=== PATIENT | male | born 1960 ===

== ENCOUNTER 2022-01-18 10:36 | Outpatient (REF) | payer BC, SELFPAY ==
--- NOTE | 2022-01-27 08:24 | MHC.AU.ANO ---
Adult Audiological Evaluation Date of Visit: 01/18/22 Reason for Appointment: Patient has started to notice changes in his hearing. He has difficulty hearing the television and difficulty hearing in background noise. Ear History: Ear Deformity: None Reported Recent Ear Pain: None Reported Family History of Hearing Loss?: No Recent Ear Infections: None Reported Ear Infections in Childhood: None Reported History of Ear Wax Buildup: Both Ears Previous Ear Surgery: None Reported Bothersome Tinnitus/Ringing/Noises in Ears: None Reported Ear used on the phone: Left Ear Blocked/Full Sensation in Ear(s): Both Ears History of occupational noise exposure?: Yes History: Yes: [employer] for 4 years Medical History: Medical History: Paroxysmal atrial fibrillation, psoriasis Otoscopy: Right Ear: Partially occluded with cerumen Left Ear: Partially occluded with cerumen Tympanometry: Tympanometry performed due to: To assess integrity of the middle ear system Right Ear: Hypercompliant Middle Ear System (Type Ad) Left Ear: Hypercompliant Middle Ear System (Type Ad) Hearing Evaluation: Transducer(s) Used: Circumaural Headphones Method: Conventional Audiometry Stimuli Used: Pure Tones Right Ear: Description of Hearing: Normal from 250-4000 Hz, borderline-normal at 1110-9078 Hz Left Ear: Description of Hearing: Normal from 250-2000 Hz, sloping to mild/moderate sensorineural hearing loss Speech Recognition Threshold (SRT): Method Used: Recorded Lists Stimuli Used: Spondee Words Right Ear: 5 dBHL Left Ear: 5 dBHL Word Discrimination: Method: Recorded Lists Word Lists Used: W-22 Right Ear: 100% at 55 dBHL Left Ear: 100% at 55 dBHL Interpretation of Results: At the start of today's appointment, patient's ear canals were mostly occluded with cerumen. Cerumen removal was performed using a lighted disposable curette. Sufficient cerumen was removed so that the tympanic membranes are now visible; however, there is deeper, hardened cerumen that remains that could not be removed today. It is unlikely that the remaining cerumen impacted test results. Patient presents with a high frequency asymmetry, worse in the left ear. Recommendations: Audiological re-evaluation in one year. Referral to ear, nose, and throat may be warranted to address the hearing asymmetry. Amplification is not warranted at this time. Use of wax drops, such as EarWaxMD or Debrox, is recommended. Diagnosis: Primary Diagnosis: H90.3 Bilateral Sensorineural Hearing Loss Signature: Provider: Noris Hernandez, [id number]
== END 2022-01-18 10:37 | disposition home or self-care (01) ==
LOC: HO.SH 10:36
PROVIDERS: Visit Provider Internal Medicine
DX: Z01.118 Encounter for examination of ears and hearing with other abnormal findings (principal); H90.3 Sensorineural hearing loss, bilateral
CPT/HCPCS: 92557; 92567